=== PATIENT | female | born 1945 | race Caucasian/White ===

== ENCOUNTER → 2017-09-22 | Outpatient (CLI) | payer MEDICARE, BC | LOC: ROC 09-14 15:22 | PROVIDERS: ATTEND Radiology Radiation Oncology | DX: Z08 Encounter for follow-up examination after completed treatment for malignant neoplasm (principal); Z85.3 Personal history of malignant neoplasm of breast | CPT/HCPCS: G0463 ==

== ENCOUNTER → 2017-11-02 | Outpatient (CLI) | payer MEDICARE, BC ==
[~2017-11-02] MED LIST: LOSA50TA6 PO; PHEN100C PO
[2017-11-02 12:08] LABS: ALANINE AMINOTRANSFERASE 36 U/L (12-78); ALBUMIN 3.7 g/dL (3.4-5.0); ANION GAP 9 mmol/L (5-15); CALCIUM 8.7 mg/dL (8.5-10.1); CHLORIDE 105 mmol/L (98-107); CREATININE 0.73 mg/dL (0.55-1.02)
[2017-11-02 12:10] LABS: ALKALINE PHOSPHATASE 117 U/L (45-117); BILIRUBIN,TOTAL 0.3 mg/dL (0.2-1.0); TOTAL PROTEIN 7.1 g/dL (6.4-8.2)
== END | disposition home or self-care (01) ==
LOC: STAR 10:46
PROVIDERS: ATTEND Surgery
DX: Z01.812 Encounter for preprocedural laboratory examination (principal); C50.612 Malignant neoplasm of axillary tail of left female breast
CPT/HCPCS: 36415; 80053; 93005

== ENCOUNTER 2017-11-09 05:27 | Day surgery (SDC) | payer MEDICARE, BC ==
[~2017-11-09] VITALS: Ht 165.1 cm; Wt 58.0 kg
[2017-11-09] MEDS ORDERED: LACTATED RINGERS 1,000 ML IV SCH (06:22)
[2017-11-09] MEDS ORDERED: GABAPENTIN 300 MG CAPSULE PO ONE (06:30)
[2017-11-09] MEDS ORDERED: ACETAMINOPHEN 500 MG TABLET PO ONE (06:30)
[2017-11-09] MEDS ORDERED: SCOPOLAMINE PATCH, 1.5MG PATCH.TD72 TD ONE (06:30)
[2017-11-09] MEDS ORDERED: ONDANSETRON 2MG/ML, 2ML IVPush ONE (06:30)
[2017-11-09] MEDS ORDERED: BUPIVACAINE/PF 0.5% ONE (06:52)
[2017-11-09] MEDS ORDERED: ISOSULFAN BLUE 10 MG/ML, 5ML IV ONE (06:52)
[2017-11-09] MEDS ORDERED: EPINEPHRINE 1 MG/ML, 1ML ONE (06:52)
[2017-11-09] MEDS ORDERED: MIDAZOLAM 1 MG/ML, 2ML ONE (07:08)
[2017-11-09] MEDS ORDERED: FENTANYL PF 250 MCG/5ML ONE (07:08)
[2017-11-09] MEDS ORDERED: LABETALOL 5MG/ML, 20ML IV PRN (07:30)
[2017-11-09] MEDS ORDERED: MEPERIDINE/PF 25MG/0.5ML IVPush PRN (07:30)
[2017-11-09] MEDS ORDERED: ONDANSETRON 2MG/ML, 2ML IV PRN (07:30)
[2017-11-09] MEDS ORDERED: FENTANYL PF 100 MCG/2ML IV PRN (07:30)
[2017-11-09] MEDS ORDERED: HYDROmorphone 1 MG/ML, 1ML IV PRN (07:30)
[2017-11-09] MEDS ORDERED: CEFAZOLIN 1,000 MG ONE ×2 (07:36)
[2017-11-09] MEDS ORDERED: LIDOCAINE-MPF 2% ,5ML ONE (07:36)
[2017-11-09] MEDS ORDERED: PROPOFOL 10 MG/ML, 20ML ONE (07:37)
[2017-11-09] MEDS ORDERED: ONDANSETRON 2MG/ML, 2ML ONE ×2 (07:37)
[2017-11-09] MEDS ORDERED: DEXAMETHASONE 4 MG/ML, 1ML ONE ×3 (07:37)
[2017-11-09] MEDS ORDERED: MEPERIDINE/PF 25MG/0.5ML ONE (08:52)
[2017-11-09] MEDS ORDERED: OXYcodone 5 MG/5 ML ORAL.SOL UDC ONE (08:53)
[2017-11-09] MEDS ORDERED: OXYcodone 5 MG/5 ML ORAL.SOL UDC PO PRN (09:00)
== END 2017-11-09 11:05 | disposition home or self-care (01) ==
LOC: OUT 05:27
PROVIDERS: ATTEND Surgery
DX: C50.612 Malignant neoplasm of axillary tail of left female breast (principal); I10 Essential (primary) hypertension; Z98.890 Other specified postprocedural states; Z88.0 Allergy status to penicillin; Z72.89 Other problems related to lifestyle; Z87.891 Personal history of nicotine dependence; Z85.3 Personal history of malignant neoplasm of breast; Z79.899 Other long term (current) drug therapy
CPT/HCPCS: 38525; 88307; C1729; J0171; J0690; J1100; J2175; J2250; J2405; J2704; J3010; J3490; J7120; 88341; 88342; G0461

== ENCOUNTER → 2017-12-29 | Outpatient (CLI) | payer MEDICARE, BC ==
[~2017-12-29] MED LIST changes: -LOSA50TA6 PO; +LOSA50TA7 PO
== END | disposition home or self-care (01) ==
LOC: ROC 07:25
PROVIDERS: ATTEND Radiology Radiation Oncology
DX: Z02.9 Encounter for administrative examinations, unspecified (principal)

== ENCOUNTER → 2018-04-20 | Outpatient (CLI) | payer MEDICARE, BC ==
[~2018-04-20] MED LIST changes: +LOSA50TA14 PO; -LOSA50TA7 PO
== END | disposition home or self-care (01) ==
LOC: CFH 10:08
PROVIDERS: ATTEND Radiology Radiation Oncology
DX: R05 Cough (principal)
CPT/HCPCS: 71046

== ENCOUNTER → 2018-05-11 | Outpatient (CLI) | payer MEDICARE, BC | END | disposition home or self-care (01) | LOC: EDSTATUS 05-05 17:02 → ROC 07:25 | PROVIDERS: ATTEND Radiology Radiation Oncology | DX: C50.619 Malignant neoplasm of axillary tail of unspecified female breast (principal) | CPT/HCPCS: G0463 ==